=== PATIENT | female | born 1940 | race Caucasian/White ===

== ENCOUNTER 2021-02-08 11:55 | Outpatient (CLI) | payer MEDICARE | END 2021-02-08 11:56 | disposition home or self-care (01) | LOC: BICULT 11:55 | PROVIDERS: ATTEND Internal Medicine Nephrology | DX: N18.30 Chronic kidney disease, stage 3 unspecified (principal); N28.1 Cyst of kidney, acquired; N28.89 Other specified disorders of kidney and ureter | CPT/HCPCS: 76770 ==

== ENCOUNTER 2022-04-10 09:33 | Inpatient (IN) | payer MEDICARE ==
[2022-04-10] MEDS ORDERED: Ondansetron PF 4 MG/2 ML Vial ONE (10:23)
[2022-04-10 11:11] LABS: #Eosinphils 0.1 thou/uL (0.0-0.7); #Lymphocytes 0.8 thou/uL (1.20-3.40); #Monocytes 0.7 thou/uL (0.11-0.59); #Neutrophils 12.5 thou/uL (1.40-6.50); %Basophils 0.2 % (0.0-1.0); %Lymphocytes 5.4 % (21.0-51.0); %Monocytes 5.1 % (0.0-10.0); %Neutrophils 88.3 % (42.0-75.0); Hemoglobin 13.9 g/dL (12.0-16.0); Mean Corpuscular HGB CONC 31.8 g/dL (32.0-36.0); Mean Corpuscular Hemoglobin 30.8 pg (27.0-31.0); Mean Corpuscular Volume 96.8 fL (78.0-98.0); Mean Platelet Volume 8.3 fL (7.4-10.4); Platelet Count 147 thou/uL (130-400); White Blood Cell (WBC) Count 14.1 thou/uL (4.8-10.8)
[2022-04-10 11:24] LABS: ALT (SGPT) 8 U/L (8-55); AST (SGOT) 14 U/L (5-34); Albumin 3.5 g/dL (3.4-4.8); Alkaline Phosphatase 92 U/L (40-110); Anion Gap 22 mmol/L (10-20); BUN (Urea Nitrogen) 37 mg/dL (9.8-20.1); Calc. Creatinine Clearance 0 mL/min (70-130); Carbon Dioxide 19 mmol/L (23-31); Chloride 103 mmol/L (98-107); Estimated GFR 18; Globulin 3.6 g/dL (2.4-3.5); Glucose 166 mg/dL (83-110); Lipase 40 U/L (8-78); Protein, Total 7.1 g/dL (5.8-8.1); Sodium 140 mmol/L (136-145)
[2022-04-10 11:46] LABS: CKMB 2.7 ng/mL (0-6.6)
[2022-04-10] MEDS ORDERED: Aspirin Chewable 81 MG TAB ONE (12:29)
[2022-04-10] MEDS ORDERED: Vancomycin 1 GM/200 ML BAG ONE (12:29)
[2022-04-10 14:05] LABS: Lactic Acid 1.7 mmol/L (0.5-2.2)
[2022-04-10 14:27] LABS: Troponin I 0.347 ng/mL (< 0.028)
[2022-04-10 14:32] LABS: SARS-CoV-2 NAA Rapid Test DETECTED (NotDetected)
[2022-04-10] MEDS ORDERED: Ondansetron ODT 4 MG TAB PO PRN (15:02)
[2022-04-10] MEDS ORDERED: Nitroglycerin 0.4 MG TAB (25 Tab Bottle) SL PRN (15:02)
[2022-04-10] MEDS ORDERED: Acetaminophen 325 MG TAB PO PRN (15:02)
[2022-04-10] MEDS ORDERED: Cefepime 2 GM VIAL ONE (15:04)
[2022-04-10] MEDS ORDERED: Heparin 25,000 units/D5W 500 ML IVPB SCH (15:15)
[2022-04-10] MEDS ORDERED: Heparin 10,000 UNITS/ 10 ML VIAL SLOW IVP SCH (15:15)
[2022-04-10 16:42] LABS: Hemoglobin 13.8 g/dL (12.0-16.0); Platelet Count 154 thou/uL (130-400)
[2022-04-10] MEDS ORDERED: Heparin 25,000 units/D5W 500 ML IV SCH (17:15)
[2022-04-10 17:22] LABS: Troponin I 0.566 ng/mL (< 0.028)
[2022-04-10 17:58] VITALS: BMI 41.3
[2022-04-10] MEDS: Heparin 10,000 UNITS/ 10 ML VIAL SLOW IVP SCH (18:53)
[2022-04-10 19:38] LABS: Magnesium 1.5 mg/dL (1.6-2.6); Phosphorus 2.6 mg/dL (2.3-4.7)
[2022-04-10] MEDS: Lactated Ringer's 1,000 ML IV SCH ×2 (20:12→21:09)
[2022-04-10 21:59] LABS: PTT Greater than 250.0 sec (22.9-36.1)
[2022-04-10 22:01] LABS: Critical Call Chem Troponin I 2N0.CAB; Troponin I 0.796 ng/mL (< 0.028)
[2022-04-10] MEDS ORDERED: Magnesium 2 GM/50 ML(in water) 2 GM in Premix Bag 1 BAG IVPB SCH (23:15)
[2022-04-11 01:37] LABS: PTT 106.9 sec (22.9-36.1)
[2022-04-11] MEDS: Lactated Ringer's 1,000 ML IV SCH ×3 (04:40→18:56)
[2022-04-11 07:22] LABS: #Eosinphils 0.1 thou/uL (0.0-0.7); #Monocytes 0.8 thou/uL (0.11-0.59); #Neutrophils 6.5 thou/uL (1.40-6.50); %Basophils 0.5 % (0.0-1.0); %Eosinophils 1.4 % (0.0-10.0); %Lymphocytes 12.2 % (21.0-51.0); %Monocytes 9.6 % (0.0-10.0); %Neutrophils 76.3 % (42.0-75.0); Hemoglobin 12.6 g/dL (12.0-16.0); Mean Corpuscular HGB CONC 32.9 g/dL (32.0-36.0); Mean Corpuscular Hemoglobin 31.2 pg (27.0-31.0); Mean Corpuscular Volume 94.9 fL (78.0-98.0); Mean Platelet Volume 8.2 fL (7.4-10.4); Platelet Count 137 thou/uL (130-400); RBC Distribution Width 11.9 % (11.5-14.5); Red Blood Cell (RBC) Count 4.04 mill/uL (4.20-5.40); White Blood Cell (WBC) Count 8.5 thou/uL (4.8-10.8)
[2022-04-11 07:37] LABS: PTT 43.6 sec (22.9-36.1)
[2022-04-11 07:42] LABS: Anion Gap 15 mmol/L (10-20); BUN (Urea Nitrogen) 30 mg/dL (9.8-20.1); Calc. Creatinine Clearance 40 mL/min (70-130); Calcium 9.6 mg/dL (7.8-10.44); Carbon Dioxide 21 mmol/L (23-31); Cardiac Risk 2.4 (Less than 4.5); Chloride 107 mmol/L (98-107); Cholesterol 93 mg/dl (< 200 Desired); Estimated GFR 26; Glucose 95 mg/dL (83-110); HDL Cholesterol 38 mg/dL (>60 Neg Risk); LDL Cholesterol, Calculated 40 mg/dL; Potassium 3.7 mmol/L (3.5-5.1); Sodium 139 mmol/L (136-145); Triglycerides 75 mg/dL (Less than 150)
[2022-04-11] MEDS: Heparin 10,000 UNITS/ 10 ML VIAL SLOW IVP SCH ×3 (07:49→22:22)
[2022-04-11] MEDS ORDERED: ISOVUE-370 76%-LOCM 1 ML ONE (08:00)
[2022-04-11 12:26] LABS: Unfractionated Heparin Less than 0.10 IU/mL
[2022-04-11 12:27] LABS: Unfractionated Heparin Less than 0.10 IU/mL
[2022-04-11 14:23] LABS: Anion Gap 15 mmol/L (10-20); BUN (Urea Nitrogen) 27 mg/dL (9.8-20.1); Calc. Creatinine Clearance 43 mL/min (70-130); Calcium 9.5 mg/dL (7.8-10.44); Carbon Dioxide 22 mmol/L (23-31); Chloride 106 mmol/L (98-107); Estimated GFR 28; Glucose 113 mg/dL (83-110); Potassium 3.8 mmol/L (3.5-5.1); Sodium 139 mmol/L (136-145)
[2022-04-11] MEDS ORDERED: Diltiazem 125 MG in Sodium Chloride 0.9% 100 ML IVPB SCH (17:15)
[2022-04-11] MEDS ORDERED: Diltiazem HCl 125 MG in Premix Bag 1 BAG IVPB SCH (18:00)
[2022-04-12 04:43] LABS: #Eosinphils 0.2 thou/uL (0.0-0.7); #Lymphocytes 1.1 thou/uL (1.20-3.40); #Monocytes 0.7 thou/uL (0.11-0.59); #Neutrophils 4.7 thou/uL (1.40-6.50); %Basophils 0.1 % (0.0-1.0); %Eosinophils 3.3 % (0.0-10.0); %Lymphocytes 16.2 % (21.0-51.0); %Monocytes 10.7 % (0.0-10.0); %Neutrophils 69.7 % (42.0-75.0); Hemoglobin 12.3 g/dL (12.0-16.0); Mean Corpuscular HGB CONC 33.2 g/dL (32.0-36.0); Mean Corpuscular Hemoglobin 31.6 pg (27.0-31.0); Mean Corpuscular Volume 95.3 fL (78.0-98.0); Mean Platelet Volume 8.4 fL (7.4-10.4); Platelet Count 148 thou/uL (130-400); RBC Distribution Width 12.1 % (11.5-14.5); White Blood Cell (WBC) Count 6.7 thou/uL (4.8-10.8)
[2022-04-12 05:12] LABS: Anion Gap 14 mmol/L (10-20); BUN (Urea Nitrogen) 22 mg/dL (9.8-20.1); Calc. Creatinine Clearance 53 mL/min (70-130); Calcium 9.5 mg/dL (7.8-10.44); Carbon Dioxide 22 mmol/L (23-31); Chloride 108 mmol/L (98-107); Estimated GFR 37; Glucose 98 mg/dL (83-110); Potassium 3.8 mmol/L (3.5-5.1); Sodium 140 mmol/L (136-145)
[2022-04-12] MEDS: Heparin 10,000 UNITS/ 10 ML VIAL SLOW IVP SCH ×2 (05:41→18:49)
[2022-04-12 08:42] LABS: Troponin I 0.238 ng/mL (< 0.028)
[2022-04-12] MEDS ORDERED: Polyethylene Glycol 3350 17 GM Packet PO PRN (13:47)
[2022-04-12 15:35] LABS: Hemoglobin 13.1 g/dL (12.0-16.0); Platelet Count 162 thou/uL (130-400)
[2022-04-12] MEDS ORDERED: Lisinopril 20 MG TAB PO SCH (19:45)
[2022-04-12] MEDS: Docusate 100 MG CAP PO SCH (21:28)
[2022-04-13] MEDS: Heparin 10,000 UNITS/ 10 ML VIAL SLOW IVP SCH (02:50)
[2022-04-13 04:33] LABS: #Eosinphils 0.3 thou/uL (0.0-0.7); #Lymphocytes 1.6 thou/uL (1.20-3.40); #Monocytes 0.8 thou/uL (0.11-0.59); #Neutrophils 4.9 thou/uL (1.40-6.50); %Basophils 0.6 % (0.0-1.0); %Eosinophils 4.1 % (0.0-10.0); %Lymphocytes 21.3 % (21.0-51.0); %Monocytes 10.1 % (0.0-10.0); Hemoglobin 12.8 g/dL (12.0-16.0); Mean Corpuscular HGB CONC 33.9 g/dL (32.0-36.0); Mean Corpuscular Hemoglobin 32.4 pg (27.0-31.0); Mean Corpuscular Volume 95.4 fL (78.0-98.0); Mean Platelet Volume 8.2 fL (7.4-10.4); Platelet Count 165 thou/uL (130-400); RBC Distribution Width 12.1 % (11.5-14.5); Red Blood Cell (RBC) Count 3.96 mill/uL (4.20-5.40); White Blood Cell (WBC) Count 7.6 thou/uL (4.8-10.8)
[2022-04-13 04:56] LABS: Anion Gap 12 mmol/L (10-20); BUN (Urea Nitrogen) 17 mg/dL (9.8-20.1); Calc. Creatinine Clearance 64 mL/min (70-130); Calcium 9.6 mg/dL (7.8-10.44); Carbon Dioxide 25 mmol/L (23-31); Chloride 107 mmol/L (98-107); Estimated GFR 46; Glucose 101 mg/dL (83-110); Potassium 4.3 mmol/L (3.5-5.1); Sodium 140 mmol/L (136-145)
[2022-04-13] MEDS ORDERED: Aspirin 81 mg Enteric Coated Tablet PO SCH (09:00)
[2022-04-13] MEDS: Cholecalciferol 1,000 UNITS (25 MCG) TAB PO SCH (09:19)
[2022-04-13] MEDS: Docusate 100 MG CAP PO SCH ×2 (09:19→22:09)
[2022-04-13] MEDS: Atorvastatin Calcium 10 MG TAB PO SCH (09:20)
[2022-04-13] MEDS: Metoprolol Tartrate 25 MG TAB PO SCH ×2 (09:20→22:09)
[2022-04-13] MEDS: Apixaban 5 MG TAB PO SCH ×2 (09:20→22:09)
[2022-04-13] MEDS: Lisinopril 20 MG TAB PO SCH (09:20)
[2022-04-13] MEDS ORDERED: Furosemide 20 MG TAB PO SCH (12:00)
[2022-04-14 04:28] LABS: #Eosinphils 0.3 thou/uL (0.0-0.7); #Lymphocytes 1.4 thou/uL (1.20-3.40); #Monocytes 0.7 thou/uL (0.11-0.59); #Neutrophils 3.7 thou/uL (1.40-6.50); %Basophils 0.7 % (0.0-1.0); %Eosinophils 5.2 % (0.0-10.0); %Lymphocytes 22.5 % (21.0-51.0); %Monocytes 10.8 % (0.0-10.0); %Neutrophils 60.8 % (42.0-75.0); Mean Corpuscular Hemoglobin 31.7 pg (27.0-31.0); Mean Corpuscular Volume 96.1 fL (78.0-98.0); Mean Platelet Volume 7.8 fL (7.4-10.4); Platelet Count 157 thou/uL (130-400); RBC Distribution Width 12.1 % (11.5-14.5); Red Blood Cell (RBC) Count 3.79 mill/uL (4.20-5.40); White Blood Cell (WBC) Count 6.1 thou/uL (4.8-10.8)
[2022-04-14 04:51] LABS: Anion Gap 13 mmol/L (10-20); BUN (Urea Nitrogen) 14 mg/dL (9.8-20.1); Calc. Creatinine Clearance 72 mL/min (70-130); Calcium 9.4 mg/dL (7.8-10.44); Carbon Dioxide 24 mmol/L (23-31); Chloride 107 mmol/L (98-107); Estimated GFR 53; Glucose 96 mg/dL (83-110); Potassium 3.6 mmol/L (3.5-5.1); Sodium 140 mmol/L (136-145)
[2022-04-14] MEDS ORDERED: Furosemide 40 MG TAB PO SCH (09:00)
[2022-04-14] MEDS ORDERED: Furosemide 20 MG TAB PO SCH (09:00)
[2022-04-14] MEDS: Apixaban 5 MG TAB PO SCH (09:04)
[2022-04-14] MEDS: Cholecalciferol 1,000 UNITS (25 MCG) TAB PO SCH (09:04)
[2022-04-14] MEDS: Lisinopril 20 MG TAB PO SCH (09:04)
[2022-04-14] MEDS: Atorvastatin Calcium 10 MG TAB PO SCH (09:04)
[2022-04-14] MEDS: Docusate 100 MG CAP PO SCH (09:05)
[2022-04-14] MEDS: Metoprolol Tartrate 25 MG TAB PO SCH (09:05)
[2022-04-14 12:07] VITALS: BP 176/85; TEMP 97.3
[2022-04-14] MEDS ORDERED: Metoprolol Tartrate 50 MG TAB PO SCH (21:00)
[2022-04-14] MEDS ORDERED: cloNIDine 0.2 MG TAB PO SCH (21:00)
[2022-04-15] MEDS ORDERED: Furosemide 20 MG TAB PO SCH ×2 (09:00)
== END 2022-04-14 16:15 | disposition home health service (06) | DRG 177 ==
LOC: ERS 09:33 → ERHOLD 12:29 → 2NO 17:33
PROVIDERS: ADMIT Student in an Organized Health Care Education/Training Program; ATTEND Student in an Organized Health Care Education/Training Program
PROC: 8E0ZXY6 Isolation (ICD-10-PCS; principal; 2022-04-10)
DX: U07.1 COVID-19 (principal); I21.4 Non-ST elevation (NSTEMI) myocardial infarction; I26.99 Other pulmonary embolism without acute cor pulmonale; N17.9 Acute kidney failure, unspecified; I82.411 Acute embolism and thrombosis of right femoral vein; I82.441 Acute embolism and thrombosis of right tibial vein; I47.2 Ventricular tachycardia; Z68.41 Body mass index [BMI] 40.0-44.9, adult; E78.5 Hyperlipidemia, unspecified; I12.9 Hypertensive chronic kidney disease with stage 1 through stage 4 chronic kidney disease, or unspecified chronic kidney disease; N18.9 Chronic kidney disease, unspecified; E86.0 Dehydration; I48.0 Paroxysmal atrial fibrillation; A08.4 Viral intestinal infection, unspecified; E78.00 Pure hypercholesterolemia, unspecified; Z90.710 Acquired absence of both cervix and uterus; Z88.0 Allergy status to penicillin; Z79.82 Long term (current) use of aspirin; Z79.899 Other long term (current) drug therapy
CPT/HCPCS: 36415; 36416; 70450; 71045; 71275; 80048; 80053; 80061; 82553; 83605; 83690; 83735; 83880; 84100; 84484; 85025; 85379; 85520; 85730; 87040; 93005; 93010; 93306; 93970; 94760; 96365; 96366; 96367; 96375; J0692; J1644; J2405; J3370; J3475; J7120; Q9966; U0002

== ENCOUNTER 2024-09-15 18:29 | Inpatient (IN) | payer MEDICARE ==
[~2024-09-15 18:29] MED LIST: Iopamidol-370 76% 500 ML MDV (1 ML CHARGE) ONE
[2024-09-15 19:12] LABS: #Basophils 0.04 10x3/uL (0.0-0.2); %Basophils 0.5 % (0.0-1.0); %Eosinophils 0.4 % (0.0-10.0); %Lymphocytes 9.3 % (21.0-51.0); %Neutrophils 82.7 % (42.0-75.0); Hematocrit 44.1 % (36.0-47.0); Hemoglobin 14.6 g/dL (12.0-16.0); Mean Corpuscular HGB CONC 33.1 g/dL (32.0-36.0); Mean Corpuscular Hemoglobin 30.5 pg (27.0-31.0); Mean Corpuscular Volume 92.1 fL (78.0-98.0); Platelet Count 263 10x3/uL (130-400); RBC Distribution Width 12.9 % (11.5-14.5); Red Blood Cell (RBC) Count 4.79 mill/uL (4.20-5.40)
[2024-09-15 19:26] LABS: ALT (SGPT) 6 U/L (8-55); AST (SGOT) 14 U/L (5-34); Albumin 3.5 g/dL (3.4-4.8); Alkaline Phosphatase 89 U/L (40-110); Anion Gap 19 mmol/L (10-20); BUN (Urea Nitrogen) 34 mg/dL (9.8-20.1); Bilirubin, Total 0.6 mg/dL (0.2-1.2); Calc. Creatinine Clearance 0 mL/min (70-130); Carbon Dioxide 22 mmol/L (23-31); Chloride 103 mmol/L (98-107); Estimated GFR 26; Globulin 3.9 g/dL (2.4-3.5); Glucose 131 mg/dL (83-110); Potassium 3.9 mmol/L (3.5-5.1); Protein, Total 7.4 g/dL (5.8-8.1); Sodium 140 mmol/L (136-145)
[2024-09-15 20:20] LABS: Magnesium 1.9 mg/dL (1.6-2.6)
[2024-09-15 20:22] LABS: Troponin I 0.023 ng/mL (< 0.028)
[2024-09-15 21:28] LABS: Bacteria/HPF None Seen HPF (None Seen); Bilirubin Negative (Negative); Blood, Urine Negative (Negative); CAUTI Indications for Culture Alt mental st,lethar; Clarity Clear (Clear); Glucose, Urine (Dipstick) Normal (Negative); Ketone, Urine Negative (Negative); Leukocyte Negative Leu/uL (Negative); Nitrite Negative (Negative); Protein, Urine (Dipstick) Negative (Neg-Trace); RBC/HPF 0-3 HPF (0-3); Specific Gravity, Urine 1.013 (1.002-1.036); Squamous Epithelial 0-3 HPF (0-3); Urobilinogen Normal mg/dL (Less than 2); WBC/HPF 0-3 HPF (0-3)
[2024-09-15 21:29] LABS: Urine Culture Reflex No No
[2024-09-15 22:22] LABS: Lactic Acid 1.78 mmol/L (0.5-2.2)
[2024-09-16 01:05] VITALS: BMI 41.1
[2024-09-16] MEDS: Lactated Ringer's 1,000 ML IV SCH (01:13)
[2024-09-16 04:58] LABS: #Basophils 0.04 10x3/uL (0.0-0.2); %Basophils 0.5 % (0.0-1.0); %Eosinophils 1.2 % (0.0-10.0); %Lymphocytes 19.4 % (21.0-51.0); %Monocytes 8.7 % (0.0-10.0); %Neutrophils 69.9 % (42.0-75.0); Hematocrit 37.6 % (36.0-47.0); Hemoglobin 12.7 g/dL (12.0-16.0); Mean Corpuscular HGB CONC 33.8 g/dL (32.0-36.0); Mean Corpuscular Hemoglobin 31.1 pg (27.0-31.0); Mean Corpuscular Volume 92.2 fL (78.0-98.0); Mean Platelet Volume 9.8 fL (7.4-10.4); Platelet Count 248 10x3/uL (130-400); RBC Distribution Width 13.1 % (11.5-14.5); Red Blood Cell (RBC) Count 4.08 mill/uL (4.20-5.40)
[2024-09-16 05:13] LABS: Anion Gap 13 mmol/L (10-20); BUN (Urea Nitrogen) 30 mg/dL (9.8-20.1); Calc. Creatinine Clearance 52 mL/min (70-130); Calcium 9.5 mg/dL (7.8-10.44); Carbon Dioxide 23 mmol/L (23-31); Chloride 107 mmol/L (98-107); Estimated GFR 37; Glucose 79 mg/dL (83-110); Potassium 3.6 mmol/L (3.5-5.1); Sodium 139 mmol/L (136-145)
[2024-09-16] MEDS: Metoprolol Tartrate 25 MG TAB PO SCH (08:22)
[2024-09-16] MEDS: Calcitriol 0.25 MCG CAP PO SCH (08:22)
[2024-09-16] MEDS: Atorvastatin Calcium 10 MG TAB PO SCH (08:22)
[2024-09-16] MEDS: Lisinopril 10 MG TAB PO SCH (08:23)
[2024-09-16] MEDS: Heparin 5,000 UNITS/ML VIAL SC SCH (08:23)
[2024-09-16 13:50] VITALS: BMI 41.1
[2024-09-17 09:15] LABS: Anion Gap 16 mmol/L (10-20); BUN (Urea Nitrogen) 21 mg/dL (9.8-20.1); Calc. Creatinine Clearance 62 mL/min (70-130); Calcium 9.4 mg/dL (7.8-10.44); Carbon Dioxide 20 mmol/L (23-31); Chloride 107 mmol/L (98-107); Estimated GFR 45; Glucose 125 mg/dL (83-110); Potassium 3.6 mmol/L (3.5-5.1); Sodium 139 mmol/L (136-145)
[2024-09-17] MEDS: Acetaminophen 325 MG TAB PO PRN (10:29)
[2024-09-18] MEDS ORDERED: Diclofenac 1% 50 GM TOPICAL GEL TP SCH (13:00)
[2024-09-19] MEDS: Transdermal Patch Removal TOP SCH (07:44)
[2024-09-19] MEDS ORDERED: Lidocaine 4% Patch TD SCH (09:00)
[2024-09-19] MEDS: Lidocaine 4% Patch TD PRN (15:30)
[2024-09-19] MEDS: Diclofenac 1% 50 GM TOPICAL GEL TP PRN (20:07)
[2024-09-19] MEDS ORDERED: Transdermal Patch Removal TOP SCH (21:00)
[2024-09-20 07:02] LABS: #Basophils Less than 0.03 10x3/uL (0.0-0.2); %Basophils 0.2 % (0.0-1.0); %Eosinophils 1.3 % (0.0-10.0); %Lymphocytes 10.6 % (21.0-51.0); %Monocytes 11.3 % (0.0-10.0); %Neutrophils 76.2 % (42.0-75.0); Hematocrit 37.6 % (36.0-47.0); Hemoglobin 12.2 g/dL (12.0-16.0); Mean Corpuscular HGB CONC 32.4 g/dL (32.0-36.0); Mean Corpuscular Hemoglobin 30.3 pg (27.0-31.0); Mean Corpuscular Volume 93.3 fL (78.0-98.0); Mean Platelet Volume 9.7 fL (7.4-10.4); Platelet Count 189 10x3/uL (130-400); RBC Distribution Width 13.2 % (11.5-14.5); Red Blood Cell (RBC) Count 4.03 mill/uL (4.20-5.40)
[2024-09-20 07:12] LABS: Anion Gap 13 mmol/L (10-20); BUN (Urea Nitrogen) 18 mg/dL (9.8-20.1); Calc. Creatinine Clearance 73 mL/min (70-130); Carbon Dioxide 22 mmol/L (23-31); Chloride 105 mmol/L (98-107); Estimated GFR 56; Glucose 102 mg/dL (83-110); Potassium 4.1 mmol/L (3.5-5.1); Sodium 136 mmol/L (136-145)
[2024-09-20 12:23] VITALS: BP 105/68; TEMP 97.7
== END 2024-09-20 17:31 | disposition swing bed (61) | DRG 683 ==
LOC: ERS 18:29 → SURG B 23:26 → OBSVTOIN 09-17 09:18
PROVIDERS: ADMIT Student in an Organized Health Care Education/Training Program; ATTEND Student in an Organized Health Care Education/Training Program
DX: N17.9 Acute kidney failure, unspecified (principal); I82.622 Acute embolism and thrombosis of deep veins of left upper extremity; Z68.41 Body mass index [BMI] 40.0-44.9, adult; R53.81 Other malaise; E78.00 Pure hypercholesterolemia, unspecified; Z88.0 Allergy status to penicillin; Z79.899 Other long term (current) drug therapy; I12.9 Hypertensive chronic kidney disease with stage 1 through stage 4 chronic kidney disease, or unspecified chronic kidney disease; E86.9 Volume depletion, unspecified; I89.0 Lymphedema, not elsewhere classified; N18.32 Chronic kidney disease, stage 3b; I48.0 Paroxysmal atrial fibrillation; E66.9 Obesity, unspecified; Z90.710 Acquired absence of both cervix and uterus; Z98.890 Other specified postprocedural states; M19.90 Unspecified osteoarthritis, unspecified site; M19.012 Primary osteoarthritis, left shoulder
CPT/HCPCS: 36415; 51701; 70450; 71275; 80048; 80053; 81001; 83605; 83735; 84484; 85025; 85379; 93005; 96372; G0378; J1644; J7120; Q9967

== ENCOUNTER 2024-09-20 17:52 | Inpatient (IN) | payer MEDICARE ==
[2024-09-20 18:36] LABS: #Basophils 0.03 10x3/uL (0.0-0.2); %Basophils 0.3 % (0.0-1.0); %Lymphocytes 9.2 % (21.0-51.0); %Monocytes 12.4 % (0.0-10.0); %Neutrophils 76.7 % (42.0-75.0); Hematocrit 41.5 % (36.0-47.0); Hemoglobin 13.6 g/dL (12.0-16.0); Mean Corpuscular HGB CONC 32.8 g/dL (32.0-36.0); Mean Corpuscular Hemoglobin 30.4 pg (27.0-31.0); Mean Corpuscular Volume 92.6 fL (78.0-98.0); Mean Platelet Volume 10.5 fL (7.4-10.4); Platelet Count 224 10x3/uL (130-400); RBC Distribution Width 13.2 % (11.5-14.5); Red Blood Cell (RBC) Count 4.48 mill/uL (4.20-5.40)
[2024-09-20] MEDS ORDERED: Digoxin 0.5 MG/2 ML AMP ONE (19:00)
[2024-09-20] MEDS ORDERED: Aspirin Chewable 81 MG TAB ONE (19:00)
[2024-09-20 19:01] LABS: ALT (SGPT) 10 U/L (8-55); AST (SGOT) 19 U/L (5-34); Albumin 2.4 g/dL (3.4-4.8); Alkaline Phosphatase 76 U/L (40-110); Anion Gap 16 mmol/L (10-20); BUN (Urea Nitrogen) 21 mg/dL (9.8-20.1); Bilirubin, Total 0.7 mg/dL (0.2-1.2); Calc. Creatinine Clearance 0 mL/min (70-130); Calcium 9.9 mg/dL (7.8-10.44); Carbon Dioxide 19 mmol/L (23-31); Chloride 103 mmol/L (98-107); Estimated GFR 52; Globulin 4.7 g/dL (2.4-3.5); Glucose 119 mg/dL (83-110); Potassium 4.6 mmol/L (3.5-5.1); Protein, Total 7.1 g/dL (5.8-8.1); Sodium 133 mmol/L (136-145)
[2024-09-20] MEDS ORDERED: Diltiazem HCl/D5W 125 ML ONE (19:01)
[2024-09-20] MEDS ORDERED: Magnesium 2 GM/50 ML BAG (IN WATER) ONE (19:01)
[2024-09-20] MEDS ORDERED: Enoxaparin 30 MG (0.3 mL) SYRINGE ONE (20:12)
[2024-09-20] MEDS ORDERED: Enoxaparin 80 MG (0.8 mL) SYRINGE ONE (20:12)
[2024-09-20] MEDS ORDERED: Acetaminophen 325 MG TAB PO PRN (21:03)
[2024-09-20] MEDS ORDERED: dilTIAZem 125 MG in Sodium Chloride 0.9% 100 ML IVPB SCH (21:15)
[2024-09-20 21:38] LABS: Troponin I 0.028 ng/mL (< 0.028)
[2024-09-20] MEDS ORDERED: Diclofenac 1% 50 GM TOPICAL GEL TP PRN (22:29)
[2024-09-20] MEDS ORDERED: Lidocaine 4% Patch TD PRN (22:29)
[2024-09-20 22:34] LABS: INR-International Normal Ratio 1.3; Prothrombin Time 15.7 sec (12.0-14.7)
[2024-09-20 22:35] LABS: PTT 51.7 sec (22.9-36.1)
[2024-09-21 01:06] LABS: Troponin I 0.025 ng/mL (< 0.028)
[2024-09-21] MEDS ORDERED: Melatonin 3 MG TAB PO PRN (02:07)
[2024-09-21] MEDS: Digoxin 0.5 MG/2 ML AMP SLOW IVP SCH (02:41)
[2024-09-21] MEDS: Melatonin 3 MG TAB PO SCH (02:41)
[2024-09-21 03:24] LABS: #Basophils 0.03 10x3/uL (0.0-0.2); %Basophils 0.3 % (0.0-1.0); %Eosinophils 1.2 % (0.0-10.0); %Lymphocytes 9.4 % (21.0-51.0); %Monocytes 11.5 % (0.0-10.0); %Neutrophils 77.2 % (42.0-75.0); Hematocrit 38.5 % (36.0-47.0); Hemoglobin 12.6 g/dL (12.0-16.0); Mean Corpuscular HGB CONC 32.7 g/dL (32.0-36.0); Mean Corpuscular Hemoglobin 30.8 pg (27.0-31.0); Mean Corpuscular Volume 94.1 fL (78.0-98.0); Mean Platelet Volume 10.6 fL (7.4-10.4); Platelet Count 226 10x3/uL (130-400); RBC Distribution Width 13.2 % (11.5-14.5); Red Blood Cell (RBC) Count 4.09 mill/uL (4.20-5.40)
[2024-09-21] MEDS: Diltiazem HCl/D5W 125 MG in Premix 1 BAG IVPB SCH (03:32)
[2024-09-21 03:50] LABS: ALT (SGPT) 11 U/L (8-55); AST (SGOT) 12 U/L (5-34); Albumin 2.1 g/dL (3.4-4.8); Alkaline Phosphatase 67 U/L (40-110); Anion Gap 14 mmol/L (10-20); BUN (Urea Nitrogen) 20 mg/dL (9.8-20.1); Bilirubin, Total 0.8 mg/dL (0.2-1.2); Calc. Creatinine Clearance 67 mL/min (70-130); Calcium 9.4 mg/dL (7.8-10.44); Carbon Dioxide 19 mmol/L (23-31); Chloride 101 mmol/L (98-107); Estimated GFR 53; Globulin 4.1 g/dL (2.4-3.5); Glucose 111 mg/dL (83-110); Potassium 4.1 mmol/L (3.5-5.1); Protein, Total 6.2 g/dL (5.8-8.1); Sodium 130 mmol/L (136-145)
[2024-09-21] MEDS: Furosemide 40 MG TAB PO SCH (07:56)
[2024-09-21] MEDS: Lisinopril 10 MG TAB PO SCH (07:56)
[2024-09-21] MEDS: Calcitriol 0.25 MCG CAP PO SCH (07:56)
[2024-09-21] MEDS: Apixaban 5 MG TAB PO SCH (07:56)
[2024-09-21] MEDS: Metoprolol Tartrate 50 MG TAB PO SCH (07:56)
[2024-09-21] MEDS: Atorvastatin Calcium 10 MG TAB PO SCH (07:56)
[2024-09-21] MEDS: Transdermal Patch Removal TOP SCH (07:57)
[2024-09-21 08:22] LABS: Magnesium 2.3 mg/dL (1.6-2.6)
[2024-09-21] MEDS ORDERED: Enoxaparin 100 MG (1 mL) SYRINGE SC SCH (09:00)
[2024-09-21] MEDS ORDERED: Metoprolol Tartrate 25 MG TAB PO SCH (09:00)
[2024-09-22 03:39] LABS: #Basophils Less than 0.03 10x3/uL (0.0-0.2); %Basophils 0.3 % (0.0-1.0); %Eosinophils 3.8 % (0.0-10.0); %Lymphocytes 15.1 % (21.0-51.0); %Monocytes 12.3 % (0.0-10.0); %Neutrophils 68.2 % (42.0-75.0); Hematocrit 37.7 % (36.0-47.0); Hemoglobin 12.3 g/dL (12.0-16.0); Mean Corpuscular HGB CONC 32.6 g/dL (32.0-36.0); Mean Corpuscular Hemoglobin 30.4 pg (27.0-31.0); Mean Corpuscular Volume 93.3 fL (78.0-98.0); Mean Platelet Volume 10.3 fL (7.4-10.4); Platelet Count 227 10x3/uL (130-400); RBC Distribution Width 13.2 % (11.5-14.5); Red Blood Cell (RBC) Count 4.04 mill/uL (4.20-5.40)
[2024-09-22 04:00] LABS: ALT (SGPT) 16 U/L (8-55); AST (SGOT) 20 U/L (5-34); Albumin 1.9 g/dL (3.4-4.8); Alkaline Phosphatase 67 U/L (40-110); Anion Gap 13 mmol/L (10-20); BUN (Urea Nitrogen) 31 mg/dL (9.8-20.1); Bilirubin, Total 0.5 mg/dL (0.2-1.2); Calc. Creatinine Clearance 55 mL/min (70-130); Calcium 9.4 mg/dL (7.8-10.44); Carbon Dioxide 20 mmol/L (23-31); Chloride 105 mmol/L (98-107); Estimated GFR 42; Glucose 97 mg/dL (83-110); Potassium 4.4 mmol/L (3.5-5.1); Protein, Total 5.9 g/dL (5.8-8.1); Sodium 134 mmol/L (136-145)
[2024-09-22] MEDS: Lisinopril 5 MG TAB PO SCH (09:14)
[2024-09-22] MEDS: Pantoprazole DR 40 MG TAB PO SCH (09:14)
[2024-09-22] MEDS: Metoprolol Tartrate 50 MG TAB PO SCH (09:14)
[2024-09-23 03:50] LABS: #Basophils 0.03 10x3/uL (0.0-0.2); %Basophils 0.5 % (0.0-1.0); %Lymphocytes 16.5 % (21.0-51.0); %Monocytes 13.3 % (0.0-10.0); %Neutrophils 64.1 % (42.0-75.0); Hematocrit 39.3 % (36.0-47.0); Hemoglobin 12.7 g/dL (12.0-16.0); Mean Corpuscular HGB CONC 32.3 g/dL (32.0-36.0); Mean Corpuscular Hemoglobin 29.6 pg (27.0-31.0); Mean Corpuscular Volume 91.6 fL (78.0-98.0); Mean Platelet Volume 9.7 fL (7.4-10.4); Platelet Count 288 10x3/uL (130-400); RBC Distribution Width 13.2 % (11.5-14.5); Red Blood Cell (RBC) Count 4.29 mill/uL (4.20-5.40)
[2024-09-23 04:32] LABS: ALT (SGPT) 23 U/L (8-55); AST (SGOT) 29 U/L (5-34); Alkaline Phosphatase 71 U/L (40-110); Anion Gap 13 mmol/L (10-20); BUN (Urea Nitrogen) 39 mg/dL (9.8-20.1); Bilirubin, Total 0.5 mg/dL (0.2-1.2); Calc. Creatinine Clearance 63 mL/min (70-130); Calcium 9.3 mg/dL (7.8-10.44); Carbon Dioxide 21 mmol/L (23-31); Chloride 105 mmol/L (98-107); Estimated GFR 49; Globulin 4.4 g/dL (2.4-3.5); Glucose 97 mg/dL (83-110); Potassium 4.3 mmol/L (3.5-5.1); Protein, Total 6.4 g/dL (5.8-8.1); Sodium 135 mmol/L (136-145)
[2024-09-23] MEDS: Lisinopril 2.5 MG TAB PO SCH (08:50)
[2024-09-24 04:00] LABS: #Basophils 0.05 10x3/uL (0.0-0.2); %Basophils 0.9 % (0.0-1.0); %Eosinophils 6.5 % (0.0-10.0); %Lymphocytes 18.7 % (21.0-51.0); %Monocytes 14.1 % (0.0-10.0); %Neutrophils 59.1 % (42.0-75.0); Hematocrit 37.2 % (36.0-47.0); Hemoglobin 12.1 g/dL (12.0-16.0); Mean Corpuscular HGB CONC 32.5 g/dL (32.0-36.0); Mean Corpuscular Hemoglobin 30.4 pg (27.0-31.0); Mean Corpuscular Volume 93.5 fL (78.0-98.0); Mean Platelet Volume 9.3 fL (7.4-10.4); Platelet Count 298 10x3/uL (130-400); RBC Distribution Width 13.3 % (11.5-14.5); Red Blood Cell (RBC) Count 3.98 mill/uL (4.20-5.40)
[2024-09-24 04:35] LABS: ALT (SGPT) 22 U/L (8-55); AST (SGOT) 23 U/L (5-34); Alkaline Phosphatase 69 U/L (40-110); Anion Gap 12 mmol/L (10-20); BUN (Urea Nitrogen) 37 mg/dL (9.8-20.1); Bilirubin, Total 0.4 mg/dL (0.2-1.2); Calc. Creatinine Clearance 55 mL/min (70-130); Calcium 9.4 mg/dL (7.8-10.44); Carbon Dioxide 21 mmol/L (23-31); Chloride 105 mmol/L (98-107); Estimated GFR 42; Globulin 4.2 g/dL (2.4-3.5); Glucose 97 mg/dL (83-110); Potassium 4.2 mmol/L (3.5-5.1); Protein, Total 6.2 g/dL (5.8-8.1); Sodium 134 mmol/L (136-145)
[2024-09-24 06:10] VITALS: BMI 39.2
[2024-09-24 08:41] VITALS: BP 127/74; TEMP 97.5
== END 2024-09-24 10:41 | disposition swing bed (61) | DRG 308 ==
LOC: ERS 17:52 → IMCU/EMU 20:33 → 2SE 09-22 17:02
PROVIDERS: ADMIT Emergency Medicine; ATTEND Emergency Medicine
DX: I48.0 Paroxysmal atrial fibrillation (principal); I26.99 Other pulmonary embolism without acute cor pulmonale; E87.1 Hypo-osmolality and hyponatremia; E78.5 Hyperlipidemia, unspecified; E78.00 Pure hypercholesterolemia, unspecified; E11.22 Type 2 diabetes mellitus with diabetic chronic kidney disease; I12.9 Hypertensive chronic kidney disease with stage 1 through stage 4 chronic kidney disease, or unspecified chronic kidney disease; N18.32 Chronic kidney disease, stage 3b; I89.0 Lymphedema, not elsewhere classified; I25.10 Atherosclerotic heart disease of native coronary artery without angina pectoris; E66.9 Obesity, unspecified; I44.4 Left anterior fascicular block; M19.90 Unspecified osteoarthritis, unspecified site; Z79.02 Long term (current) use of antithrombotics/antiplatelets; Z90.710 Acquired absence of both cervix and uterus; Z88.0 Allergy status to penicillin; Z79.899 Other long term (current) drug therapy; Z68.39 Body mass index [BMI] 39.0-39.9, adult; Z91.81 History of falling; Z95.5 Presence of coronary angioplasty implant and graft
CPT/HCPCS: 36415; 36416; 71045; 71275; 80053; 83735; 83880; 84484; 85025; 85379; 85610; 85730; 93005; 93306; 93970; 96374; 96375; J1160; J1650; J3475; Q9967